=== PATIENT | female | born 1980 | race Caucasian/White ===

== ENCOUNTER 2025-06-15 10:00 | Outpatient (RCR) | payer MEDICAID, SELFPAY | END 2025-06-15 23:59 | disposition home or self-care (01) | LOC: PT.CARL 10:00 | PROVIDERS: Visit Provider Nurse Practitioner | DX: R26.9 Unspecified abnormalities of gait and mobility (principal); R53.1 Weakness | CPT/HCPCS: 97110; 97162; 97530 ==

== ENCOUNTER 2025-07-06 06:39 | Outpatient (RCR) | payer MEDICAID, SELFPAY | END 2025-07-10 15:15 | disposition home or self-care (01) | LOC: PT.CARL 06:39 | PROVIDERS: Visit Provider Nurse Practitioner | DX: R26.9 Unspecified abnormalities of gait and mobility (principal); R29.6 Repeated falls; R53.1 Weakness; M25.552 Pain in left hip; M54.50 Low back pain, unspecified | CPT/HCPCS: 97110 ==